=== PATIENT | male | born 1960 | race Caucasian/White ===

== ENCOUNTER → 2023-08-03 06:34 | Day surgery (SDC) | payer OTHER, SELFPAY | LOC: GI 06:34 | PROVIDERS: ATTENDING PHYSICIAN Internal Medicine Gastroenterology | DX: Z12.11 Encounter for screening for malignant neoplasm of colon (principal); K57.30 Diverticulosis of large intestine without perforation or abscess without bleeding; K64.8 Other hemorrhoids; D12.4 Benign neoplasm of descending colon; D12.5 Benign neoplasm of sigmoid colon; K62.1 Rectal polyp; K63.5 Polyp of colon; K51.40 Inflammatory polyps of colon without complications; Z86.010 Personal history of colon polyps | CPT/HCPCS: 45385; 45380; 88305 ==